=== PATIENT | male | born 1960 | race Caucasian/White ===

== ENCOUNTER → 2019-12-20 09:24 | Outpatient (BNVA) | payer OTHER, SELFPAY | PROVIDERS: PCP Nurse Practitioner Family; Visit Provider Urology | DX: N52.9 Male erectile dysfunction, unspecified (principal); R68.82 Decreased libido; Z12.5 Encounter for screening for malignant neoplasm of prostate | CPT/HCPCS: 81001 ==

== ENCOUNTER 2021-07-07 12:20 | Outpatient (CLI) | payer OTHER, SELFPAY ==
[2021-07-07 06:55] VITALS: BMI 31.4
[2021-07-07 12:30] VITALS: BP 135/75; PULSE 83; RESP 18; TEMP 36.2; O2SAT 98
[2021-07-07 13:25] VITALS: BP 122/70; PULSE 74; RESP 17; TEMP 36.7; O2SAT 97
[2021-07-07 14:29] VITALS: BP 115/67; PULSE 75; RESP 17; TEMP 36.6; O2SAT 97
== END 2021-07-07 12:21 | disposition home or self-care (01) ==
LOC: OPS 12:25
PROVIDERS: PCP Nurse Practitioner Family; Visit Provider Nurse Practitioner Family
DX: U07.1 COVID-19 (principal)
CPT/HCPCS: 96365

== ENCOUNTER 2023-11-02 08:00 | Emergency (ER) | payer SELFPAY ==
[2023-11-02] VITALS (7 sets, daily range): BP systolic 121–148; BP diastolic 71–81; PULSE 64–71; RESP 13–16; TEMP 36.4; O2SAT 96–100; BMI 28.0
--- NOTE | 2023-11-02 08:04 | XRR_ITS ---
PROCEDURE INFORMATION: Exam: XR Chest Exam date and time: 11/02/2023 8:23 AM Age: 63 years old Clinical indication: Cough and dyspnea; Additional info: Dyspnea/cough TECHNIQUE: Imaging protocol: Radiologic exam of the chest. Views: 1 view. COMPARISON: No relevant prior studies available. FINDINGS: Lungs: Unremarkable. No consolidation. Lung base reticulation, likely atelectasis. Pleural spaces: Unremarkable. No pleural effusion. No pneumothorax. Heart/Mediastinum: Cardiomegaly. Bones/joints: Diffuse degenerative change of the visualized osseous structures. XR/XR chest 1V portable [id number] IMPRESSION: 1. Cardiomegaly. 2. Lung base reticulation bilaterally, likely atelectasis. Rule out superimposed infection clinically.
--- NOTE | 2023-11-02 08:04 | ECG_ITS ---
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 Measurements Intervals [place] Rate: 71 P: 40 [place]: 186 QRS: -46 QRSD: 128 T: -4 QT: 399 QTc: 435 Interpretive Statements SINUS RHYTHM RIGHT BUNDLE BRANCH BLOCK [120+ ms QRS DURATION, UPRIGHT V1, 40+ ms S IN I/aVL/V4/V5/V6] LEFT ANTERIOR FASCICULAR BLOCK [QRS AXIS <= -45, QR IN I, RS IN II] MODERATE VOLTAGE CRITERIA FOR LVH, CONSIDER NORMAL VARIANT [MEETS CRITERIA IN ONE OF: R(aVL), S(V1), R(V5), R(V5/V6)+S(V1)] INTERPRETATION BASED ON A DEFAULT AGE OF 40 YEARS No previous ECG available for comparison Electronically Signed On 11-02-2023 16:24:50 CDT by Armond Davila M.D. [email or web address].[email or web address]/store/[id number]
--- NOTE | 2023-11-02 08:23 | ED_ITS ---
HPI - Chest Pain 2 General: Chief Complaint: Chest Pain Stated Complaint: chest pain Time Seen by Provider: 11/02/23 08:03 Source: patient Mode of arrival: ambulatory History of Present Illness: 63-year-old male presents emergency room with complaints of palpitation and flushed feeling nausea occasional chest pressure. He focuses more on these episodes of palpitations intermittently. He will feel like he has a run of irregular heartbeats thumping type heartbeat in the pause and will resume normal. This is evidently been going on for several months. He has seen his PCP they were supposed to get a Holter monitor, but has not yet been completed. No known history of coronary disease no chest pain at this time Onset (ago): month(s) Timing of current episode: episodic Prior episodes: Yes Onset: during rest Pain location: left chest Pain radiation: back Relieving factors: nothing Exacerbating factors: nothing Associated symptoms: Deny abdominal pain, diaphoresis, dyspnea, fever(s), leg edema, nausea, palpitations, sense of impending doom, syncope or vomiting Treatment prior to arrival: none Review of Systems 2 Const: Denies: fever(s) or diaphoresis Card: Denies: palpitations or syncope Resp: Denies: dyspnea GI: Denies: abdominal pain, nausea or vomiting : Denies: dysuria, urinary frequency or urinary urgency Musc: Denies: neck pain or back pain Skin/Breast: Denies: rash PFSH ED 2 PFSH: Medical History Decreased libido Diabetes Erectile dysfunction Hyperlipidemia Family History Mother Diabetes Hypertension Grandmother Cancer paternal--thyroid that spread Other CAD (coronary artery disease) Hyperlipidemia Denies family history of Clotting disorder Dementia Psychiatric illness Chronic kidney disease (CKD) Anesthesia complication Bleeding disorder Lung disease Stroke Social History Smoking and tobacco/nicotine status: former use of tobacco/nicotine Quit status (tobacco/nicotine): has quit using Year quit tobacco: 1992 Alcohol intake: current Alcohol intake frequency: holidays/special occasions only Alcohol type: beer Substance/Drug Use: current Substance/Drug use frequency: daily Other substance/drug use details: for pain management/medical Lives independently: Yes Marital status: Number of children: 3 Current occupational status: retired Current gender identity: Male Special travis needs: No Physical Exam 2 Const: COMMON NORMALS: no acute distress GENERAL APPEARANCE: cooperative and comfortable ORIENTATION/CONSCIOUSNESS: Yes awake, Yes oriented to person, Yes oriented to place and Yes oriented to time HENMT: COMMON NORMALS: normocephalic, atraumatic and hearing grossly normal bilaterally HEAD & SCALP: normocephalic and atraumatic Resp: COMMON NORMALS: normal respiratory effort, No retractions, No use of accessory muscles and clear to auscultation bilaterally AUSCULTATION: clear to auscultation bilaterally Cardio: COMMON NORMALS: regular rate, regular rhythm and No murmurs present (Cardio) RATE: regular rate RHYTHM: regular rhythm GI: COMMON NORMALS: Soft to palpation and No hepatosplenomegaly present A USCULTATION: Yes normoactive bowel sounds PALPATION: Yes Soft to palpation, No Tenderness to palpation present (GI), No Guarding due to palpation present (GI) and Yes No hepatosplenomegaly present Extremity: COMMON NORMALS: normal to inspection, capillary refill normal, no clubbing, cyanosis or edema, no calf tenderness and no pedal edema Neuro: SENSORIUM/ORIENTATION: Yes oriented to person, Yes oriented to place and Yes oriented to time Skin: COMMON NORMALS: no rashes or lesions noted GENERAL SKIN EXAM: no rashes or lesions noted Course 2 Vital Signs: Vital signs: Vital Signs Temperature 97.6 F 11/02/23 08:07 Pulse Rate 64 11/02/23 11:27 Respiratory Rate 15 11/02/23 11:27 Blood Pressure 133/81 11/02/23 11:27 Pulse Oximetry 100 11/02/23 11:27 Oxygen Delivery Me thod Room Air 11/02/23 08:24 MDM - Chest Pain Medical Decision Making Cardiac enzymes are negative. EKG does not show acute changes but no arrhythmias noted during monitoring while he was in the emergency room. Will discharge patient home set up for outpatient Lexiscan sestamibi stress test and 48-hour Holter monitor Medical Records I reviewed the patient's medical records. Lab Data I reviewed the patient's lab results. 11/02/23 08:35 11/02/23 08:35 Radiology Impressions Chest X-Ray 11/02/23 08:04 IMPRESSION: 1. Cardiomegaly. 2. Lung base reticulation bilaterally, likely atelectasis. Rule out superimposed infection clinically. Laboratory Results WBC 7.93 10^3/uL (3.29-11.43) 11/02/23 08:35 RBC 5.04 10^6/uL (3.85-5.65) 11/02/23 08:35 Hgb 15.30 g/dL (11.27-16.99) 11/02/23 08:35 Hct 46.2 % (37-53) 11/02/23 08:35 MCV 91.7 fl (82-101) 11/02/23 08:35 MCH 30.4 pg (27-33) 11/02/23 08:35 MCHC 33.1 g/dL (30-55) 11/02/23 08:35 RDW 12.0 % (12.1-15.1) L 11/02/23 08:35 Plt Count 209 10^3/cmm (157-399) 11/02/23 08:35 MPV 8.8 fL (7.4-10.4) 11/02/23 08:35 Neut % (Auto) 57.8 % 11/02/23 08:35 Lymph % (Auto) 34.3 % 11/02/23 08:35 [place] % (Auto) 5.5 % 11/02/23 08:35 Eos % (Auto) 1.5 % 11/02/23 08:35 Baso % (Auto) 0.4 % 11/02/23 08:35 Neut # (Auto) 4.58 10^3/uL (1.8-7.7) 11/02/23 08:35 Lymph # (Auto) 2.7 10^3/uL (0.8-4.8) 11/02/23 08:35 [place] # (Auto) 0.4 10^3/uL (0.2-0.9) 11/02/23 08:35 Eos # (Auto) 0.1 10^3/uL (0.0-0.8) 11/02/23 08:35 Baso # (Auto) 0.0 10^3/uL (0.0-0.1) 11/02/23 08:35 Nucleated RBC % (auto) 0 % 11/02/23 08:35 Nucleated RBCs # 0.0 /100WBC 11/02/23 08:35 Sodium 135 mmol/L (136-145) L 11/02/23 08:35 Potassium 4.5 mmol/L (3.5-5.1) 11/02/23 08:35 Chloride 99 mmol/L (98-107) 11/02/23 08:35 Carbon Dioxide 24 mmol/L (22-29) 11/02/23 08:35 Anion Gap 16.5 (5-19) 11/02/23 08:35 BUN 15 mg/dL (8-23) 11/02/23 08:35 Creatinine 0.6 mg/dL (0.7-1.2) L 11/02/23 08:35 GFR Calculation 136.1 mL/min (90-130) H 11/02/23 08:35 Glucose 254 mg/dL (65-115) H 11/02/23 08:35 Calculated Osmolality 289 mOsm/kg (285-295) 11/02/23 08:35 Calcium 9.3 mg/dL (8.5-10.5) 11/02/23 08:35 Total Bilirubin 0.4 mg/dL (0.15-1.2) 11/02/23 08:35 AST 21 U/L (0-40) 11/02/23 08:35 ALT 26 U/L (0-41) 11/02/23 08:35 Alkaline Phosphatase 61 U/L (40-130) 11/02/23 08:35 Troponin T Baseline 9 ng/L (0-15) 11/02/23 08:35 Troponin T 120 Minute 8.57 ng/L (0-15) 11/02/23 10:39 Delta Troponin T -0.43 ABS# (0-10) L 11/02/23 10:39 Total Protein 7.3 g/dL (6.6-8.7) 11/02/23 08:35 Albumin 4.4 g/dL (3.5-5.2) 11/02/23 08:35 Globulin 2.9 g/dL (1.3-4.6) 11/02/23 08:35 All radiology interpretation(s) finalized by discharge Discharge Plan Discharge Patient Disposition: Home Clinical Impression: Palpitations, Chest discomfort Condition: Stable Prescriptions: No Action omeprazole 20 mg capsule,delayed release(DR/EC) 20 mg PO DAILY PRN (Reason: Acid Reflux) Medical Marijuana 1 ea PO DAILY ascorbate calcium (vitamin C) 500 mg tablet 500 mg PO DAILY vitamin B complex Tablet 1 tab PO DAILY insulin lispro [Humalog KwikPen Insulin] 100 unit/mL insulin pen 40 unit SUBCUT TID 90 Days Qty: 108 3RF insulin glargine [Lantus Solostar U-100 Insulin] 100 unit/mL (3 mL) insulin pen 60 unit SUBCUT BID 90 Days Qty: 108 3RF Rx Instructions: 340b aspirin [Adult Low Dose Aspirin] 81 mg tablet,delayed release (DR/EC) 81 mg PO DAILY Qty: 90 1RF glipizide 10 mg tablet 10 mg PO DAILY Qty: 90 1RF Discharge Orders: Discharge ED (Routine); Ordered 11/02/23 Ordered By: Luan Linda Referrals: Tuckre Negron MD [Primary Care Provider] - Discharge Diet: Usual diet Discharge Activity: Limit activity as instructed Patient Instructions: Opioid Safety, Pain Management Activity Restrictions/Additional Instructions: Thank you for choosing [facility] for your healthcare needs today. Please realize this is an emergency room and that we are providing you with a medical screening exam and this may not be complete and all inclusive of all the testing and or work up that you may need to determine your ailment or severity of your illness. It is very important that you follow up as instructed or that you return to the Emergency Department should you have concerns or if your condition changes or worsens in any way. You were seen today for chest discomfort and palpitations your cardiac enzymes and EKG did not show any acute changes. Will set you up for an outpatient Lexiscan sestamibi stress test as well as a 48-hour Holter monitor. Follow-up with your primary care doctor if you have further symptoms. 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
[2023-11-02 08:42] LABS: Basophils % 0.4 %; Eosinophils # 0.1 10^3/uL (0.0-0.8); Eosinophils % 1.5 %; Hematocrit 46.2 % (37-53); Lymphocytes # 2.7 10^3/uL (0.8-4.8); Lymphocytes % 34.3 %; Mean Corpuscular HGB Conc 33.1 g/dL (30-55); Mean Corpuscular Hemoglobin 30.4 pg (27-33); Mean Corpuscular Volume 91.7 fl (82-101); Mean Platelet Volume 8.8 fL (7.4-10.4); Monocytes # 0.4 10^3/uL (0.2-0.9); Monocytes % 5.5 %; Neutrophils # 4.58 10^3/uL (1.8-7.7); Neutrophils % 57.8 %; Nucleated Red Blood Cells % 0 %; Platelet Count 209 10^3/cmm (157-399); Red Blood Count 5.04 10^6/uL (3.85-5.65); White Blood Count 7.93 10^3/uL (3.29-11.43)
[2023-11-02] MEDS: aspirin 81 mg Chew Tablet 324 MG PO (08:42)
--- NOTE | 2023-11-02 08:50 | PC.PHAR ---
PT STATES HAS NOT HAD ANY INSULIN YET TODAY 11/02/23.
[2023-11-02 09:09] LABS: Alanine Aminotransferase 26 U/L (0-41); Albumin Level 4.4 g/dL (3.5-5.2); Alkaline Phosphatase 61 U/L (40-130); Aspartate Amino Transferase 21 U/L (0-40); Blood Urea Nitrogen 15 mg/dL (8-23); Calcium 9.3 mg/dL (8.5-10.5); Carbon Dioxide 24 mmol/L (22-29); Chloride 99 mmol/L (98-107); Globulin 2.9 g/dL (1.3-4.6); Glomerular Filtration Rate 136.1 mL/min (90-130); Glucose 254 mg/dL (65-115); Osmolality Calculated 289 mOsm/kg (285-295); Sodium 135 mmol/L (136-145); Total Bilirubin 0.4 mg/dL (0.15-1.2); Total Protein 7.3 g/dL (6.6-8.7)
[2023-11-02 09:10] LABS: Troponin(5th) Baseline 9 ng/L (0-15)
[2023-11-02 09:11] LABS: Anion Gap 16.5 (5-19); Potassium 4.5 mmol/L (3.5-5.1)
--- NOTE | 2023-11-02 10:04 | ECG_ITS ---
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 Measurements Intervals [place] Rate: 61 P: 29 [place]: 206 QRS: -39 QRSD: 127 T: -5 QT: 400 QTc: 404 Interpretive Statements SINUS RHYTHM LEFT AXIS DEVIATION [QRS AXIS < -30] RIGHT BUNDLE BRANCH BLOCK [120+ ms QRS DURATION, UPRIGHT V1, 40+ ms S IN I/aVL/V4/V5/V6] VOLTAGE CRITERIA FOR LVH [MEETS CRITERIA IN ONE OF: R(aVL), S(V1), R(V5), R(V5/V6)+S(V1)] Compared to ECG 11/02/2023 08:12:50 Left-axis deviation now present Left anterior fascicular block no longer present Electronically Signed On 11-02-2023 16:28:20 CDT by Armond Davila M.D. [id number]
[2023-11-02 11:05] LABS: Troponin 5 2HR 8.57 ng/L (0-15)
[2023-11-02 11:06] LABS: Troponin 5 2HR Delta -0.43 ABS# (0-10)
--- NOTE | 2023-11-17 15:07 | PC.SOCIAL ---
CM notified that patient needed 48 hour holter and lexiscan ordered. Messaged cardiology for heart monitor appt. Order placed in computer for lexiscan test, orders printed and faxed to centralized scheduling at this time as well.
== END 2023-11-02 12:03 | disposition home or self-care (01) ==
PROVIDERS: Emergency Provider Family Medicine; PCP Family Medicine
DX: R00.2 Palpitations (principal); R07.89 Other chest pain; Z79.82 Long term (current) use of aspirin; Z79.84 Long term (current) use of oral hypoglycemic drugs; Z79.4 Long term (current) use of insulin; Z87.891 Personal history of nicotine dependence; E11.9 Type 2 diabetes mellitus without complications; E78.5 Hyperlipidemia, unspecified
CPT/HCPCS: 36415; 71045; 80053; 84484; 85025; 93005; 99285

== ENCOUNTER → 2024-06-06 09:25 | Outpatient (BNVA) | payer SELFPAY | PROVIDERS: PCP Family Medicine; Visit Provider Internal Medicine Cardiovascular Disease | DX: I45.2 Bifascicular block (principal); R07.9 Chest pain, unspecified | CPT/HCPCS: 93005 ==